=== PATIENT | female | born 1940 | race Caucasian/White ===

== ENCOUNTER 2017-04-05 14:54 | Inpatient (IN) | payer MEDICARE, OTHER ==
[~2017-04-05] VITALS: Ht 162.6 cm; Wt 89.0 kg
[2017-04-05 15:03] VITALS: Ht 162.6 cm; Wt 89.0 kg
[2017-04-05] MEDS ORDERED: SOD CHLORIDE 0.9% 500 ML IV STA (16:32)
--- NOTE | 2017-04-05 17:23 | RADRPT ---
PROCEDURE: XR Chest. CLINICAL INDICATION: Chest pain. TECHNIQUE: Single frontal view of the chest was obtained. COMPARISON: Chest x-ray 03/25/2014. FINDINGS: The soft tissues are normal. There are degenerative osteophytes in the thoracic spine with a mild l evoscoliosis at the thoracolumbar junction. The heart is enlarged. The cardiomediastinal silhouett e and hilar structures are normal. The pulmonary vasculature is upper limits of normal. Vascular ca lcifications are suspected in the aortic arch. There is a suboptimal inspiratory effort with jaclyn sive atelectasis in the lungs and increased interstitial markings in the perihilar areas The costop hrenic angles are normal. IMPRESSION: 1. Mild cardiomegaly. 2. Suboptimal inspiration with vascular crowding increased interstitial markings in the lungs. 3. Spondylosis of the thoracic spine. 4. Atherosclerotic vascular disease. RPTAT:AAJJ Physician Russ Date Time Electronically viewed and signed by Physician Russ on 04/05/2017 17:23 FRANCES/
--- NOTE | 2017-04-05 17:26 | RADRPT ---
PROCEDURE: Left tibia and fibula x-ray CLINICAL INDICATION: Fall. TECHNIQUE: AP, lateral views of the tibia and fibula were obtained. COMPARISON: No. FINDINGS: There is normal mineralization. No acute fracture or dislocation is seen. There are no significant degenerative changes. There is no significant soft tissue swelling. IMPRESSION: Normal x-ray of the left tibia and fibula. RPTAT:AAJJ Physician Russ Date Time Electronically viewed and signed by Luis Sierra Physician on 04/05/2017 17:25 FRANCES/
--- NOTE | 2017-04-05 17:27 | RADRPT ---
PROCEDURE: Pelvis x-ray CLINICAL INDICATION: Fall. TECHNIQUE: Single AP view of the pelvis performed. COMPARISON: No. FINDINGS: The soft tissues are generous. There are degenerative changes with disk space narrowing between the lower lumbar vertebra and at the lumbosacral junction. There is fecal material in the rectal ampul la. The SI joints and hip joints are bilaterally symmetric. A fracture is not identified. IMPRESSION: 1. A fracture is not identified. 2. 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 RPTAT:AAJJ Physician Russ Date Time Electronically viewed and signed by Physician Russ on 04/05/2017 17:26 /
[2017-04-05 17:44] LABS: ADD SCAN DIFF NO
[2017-04-05 17:47] LABS: ABNORMAL IP MESSAGE 1; HEMATOCRIT 31.5 % (37.0-47.0); HEMOGLOBIN 10.7 g/dl (12.0-16.0); MEAN CORPUSCULAR VOLUME 94.3 fl (82.0-101.0); MEAN PLATELET VOLUME 11.6 fl (7.4-10.4); PLATELET COUNT 92 10^3/UL (140-415); RED BLOOD COUNT 3.34 10^6/ul (4.20-5.40); RED CELL DISTRIBUTION WIDTH 13.8 % (11.5-14.5); WHITE BLOOD COUNT 8.5 10^3/ul (4.8-10.8)
[2017-04-05 18:00] LABS: ALBUMIN 4.1 g/dl (3.3-4.9)
--- NOTE | 2017-04-05 18:00 | RADRPT ---
PROCEDURE: CT Brain without. CLINICAL INDICATION: Fall. TECHNIQUE: A CT of the brain was performed on multidetector high-resolution CT scanner utilizing a xial sections from the skull base through the vertex without contrast. The scan was reviewed in sof t tissue brain and high frequency resolution bone algorithm windows. Images were reviewed on a high -resolution PACS workstation. One or more the following does reduction techniques were utilized: Aut omated exposure control, adjustment of the mA/ or kV according to patient's size, or use of iterativ e reconstruction technique. The exam CTDI = 43.58 mGy and the DLP = 630.2 mGy-cm. COMPARISON: None available. FINDINGS: Postsurgical changes of prior right frontal craniotomy are noted with subjacent right frontal enceph alomalacia and ex vacuo dilatation of the right lateral ventricle. There is also focal encephalomal acia in the anterior right thalamus. The ventricles and sulci are otherwise mildly prominent indicative of volume loss. There is no intra cranial hemorrhage, mass effect or midline shift. No abnormal intra-axial or extra-axial fluid tita ections are seen. The justin/white matter differentiation is preserved. There are mild scattered foci of hypoattenuation in the periventricular, deep, and subcortical white matter, which are nonspecific in etiology but likely reflect chronic small vessel ischemic changes. There are mild intracranial vascular calcifications consistent with atherosclerosis. The visualize d paranasal sinuses are essentially clear. IMPRESSION: 1. No acute intracranial hemorrhage, transcortical infarction or mass effect. 2. Mild intracranial atherosclerosis and chronic small vessel ischemic changes. 3. Mild generalized cerebral volume loss. 4. Prior right frontal craniotomy with subjacent right frontal encephalomalacia. Focal encephalomal acia in the anterior right thalamus. RPTAT: HH .Alice Han MD, MD Date Time Electronically viewed and signed by .Alice Han MD, MD on 04/05/2017 18:00 .N/
[2017-04-05 18:01] LABS: POTASSIUM 4.5 mmol/L (3.5-5.1)
[2017-04-05 18:02] LABS: INR 1.08; PT RATIO 1.1
[2017-04-05 18:03] LABS: ALBUMIN/GLOBULIN RATIO 1.7; BILIRUBIN,INDIRECT 1.2 mg/dl (0-1.1); BILIRUBIN,TOTAL 1.2 mg/dl (0.2-1.3); CREATININE 0.93 mg/dl (0.44-1.00); PARTIAL THROMBOPLASTIN TIME 44.6 Sec (25.0-35.0); TOTAL PROTEIN 6.5 g/dl (6.1-8.1)
[2017-04-05 18:04] LABS: CALCIUM 9.1 mg/dl (8.4-10.2)
--- NOTE | 2017-04-05 18:12 | RADRPT ---
PROCEDURE: XR Left rib series. CLINICAL INDICATION: Left chest wall pain TECHNIQUE: 3 views of the left rib cage are available for review COMPARISON: None available FINDINGS: The osseous structures, articular spaces, and surrounding soft tissues of the left rib cage are inta ct. No acute fracture or dislocation is seen. No radiopaque foreign body is identified. The visual ized portions of the underlying lung is clear. IMPRESSION: 1. No evidence of acute fracture is identified. RPTAT: HDWR .Alonzo Mcneal MD, MD Date Time Electronically viewed and signed by .Alonzo Mcneal MD, on 04/05/2017 18:12 .R/
[2017-04-05 18:15] LABS: TROPONIN-I 0.03 ng/ml (0.00-0.12)
[2017-04-05 18:26] LABS: HYPOCHROMASIA 1+; LYMPHOCYTES # 0.3 10^3/ul (0.8-2.9); MONOCYTE # 0.2 10^3/ul (0.3-0.9); NEUTROPHIL # 8.1 10^3/ul (1.6-7.5); PLATELET ESTIMATE PLT APPEAR DECREASED
[2017-04-05] MEDS ORDERED: DEXTROSE 50% 50 ML SYRINGE IV ONE (18:30)
[2017-04-05] MEDS ORDERED: ASPI81TA3 PO (18:50)
[2017-04-05] MEDS ORDERED: FURO20TA3 PO (18:51)
[2017-04-05] MEDS ORDERED: FLUT16SP17 NASAL (18:51)
[2017-04-05] MEDS ORDERED: CARV3.1260 PO (18:52)
[2017-04-05] MEDS ORDERED: LOSA25TA5 PO (18:52)
[2017-04-05] MEDS ORDERED: METF1000 PO (18:53)
[2017-04-05] MEDS ORDERED: ATOR20TA38 PO (18:53)
[2017-04-05] MEDS ORDERED: LEVE750T8 PO (18:54)
[2017-04-05] MEDS ORDERED: OMEG1CAP2 PO (18:54)
[2017-04-05 18:55] LABS: ADD UMIC YES; URINE BILIRUBIN (Dip) NEGATIVE (NEGATIVE); URINE BLOOD (Dip) TRACE (NEGATIVE); URINE COLOR LT. YELLOW (YELLOW); URINE GLUCOSE (Dip) NEGATIVE (NEGATIVE); URINE KETONES (Dip) NEGATIVE (NEGATIVE); URINE LEUKOCYTE ESTERASE (Dip) NEGATIVE (NEGATIVE); URINE NITRITE (Dip) NEGATIVE (NEGATIVE); URINE TOTAL PROTEIN (Dip) NEGATIVE (NEGATIVE); URINE UROBILINOGEN (Dip) 0.2 E.U./dL (0.1-1.0)
[2017-04-05] MEDS ORDERED: LANT3I SC (18:55)
--- NOTE | 2017-04-05 18:55 | ERA ---
ER Documentation Chief Complaint Date/Time DATE: 04/05/17 TIME: 18:51 Chief Complaint PER TRAVEL MED SURG RN W/ PERIOD OF AGITATION, SEND BY PMD FOR ADMISSION? AGITATED HPI History obtained from patient's caregiver as patient is unable to give a detailed history secondary to her cognitive deficit. This is a 76-year-old female who presents to the emergency room after being sent in by her primary care physician, Dr. Bard champagne for evaluation of multiple falls, agitation and weakness. According to the patient's caregiver she has had multiple falls this week, and she does have a history of prior head injury with surgical intervention required. This patient is not on any blood thinners at this time. ROS All systems reviewed and are negative except as per history of present illness. Medications Home Meds Reported Medications Aspirin* (Aspirin* Chew) 81 Mg Tab.chew, 81 MG PO DAILY, TAB.CHEW 04/05/17 Allergies Allergies: Coded Allergies: No Known Allergy (Unverified , 04/05/17) PMhx/Soc History of Surgery: Yes (see chart) Anesthesia Reaction: No Hx Neurological Disorder: No Hx Respiratory Disorders: No Hx Cardiac Disorders: No Hx Psychiatric Problems: No Hx Miscellaneous Medical Probl: Yes (Bipolar ) Hx Alcohol Use: No Hx Substance Use: No Hx Tobacco Use: No Smoking Status: Never smoker Physical Exam Vitals Vital Signs Date Time Temp Pulse Resp B/P Pulse Ox O2 Delivery O2 Flow Rate FiO2 04/05/17 18:21 98.2 74 16 116/68 99 Room Air 04/05/17 15:03 98.2 78 18 122/57 99 Physical Exam INITIAL VITAL SIGNS: Reviewed by me GENERAL: The patient is frail-appearing elderly female, no acute HEENT: Dry mucous membranes, pupils equal, round, and reactive to light. EOMI. There is no scleral icterus. NECK: C-spine is soft and supple, there is no meningismus. There is no cervical lymphadenopathy. LUNGS: Clear to auscultation bilaterally. There are no rales, wheezes or rhonchi. HEART: Regular rate and rhythm, no murmurs, clicks, rubs or gallops. ABDOMEN: Soft, non-tender, non-distended. There are bowel sounds in all four quadrants. No rebound or guarding. EXTREMITIES: There is no peripheral cyanosis or edema. No focal swelling or erythema. NEUROLOGICAL: The patient moves all four extremities with 5/5 strength. Cranial nerves II - XII are intact. Normal gait. Alert and oriented SKIN: Multiple areas of ecchymosis noted over the left flank, right anterior chest wall, right and left tibia, hematoma noted over the left anterior portion of the tibia there is no apparent rash or petechiae. HEME/LYMPHATIC: There is no evidence of excessive bruising or lymphedema. PSYCHIATRIC: The patient does not appear anxious or depressed. Result Diagram: 04/05/175 04/05/17 1715 Results 24 hrs Laboratory Tests Test 04/05/17 17:15 White Blood Count 8.510^3/ul Red Blood Count 3.3410^6/ul Hemoglobin 10.7g/dl Hematocrit 31.5% Mean Corpuscular Volume 94.3fl Mean Corpuscular Hemoglobin 32.0pg Mean Corpuscular Hemoglobin Concent 34.0g/dl Red Cell Distribution Width 13.8% Platelet Count 9210^3/UL Mean Platelet Volume 11.6fl Neutrophils % 95.0% Lymphocytes % 3.0% Monocytes % 2.0% Neutrophils # 8.110^3/ul Lymphocytes # 0.310^3/ul Monocytes # 0.210^3/ul Platelet Estimate PLT APPEAR DECREASED Hypochromasia 1+ Prothrombin Time 14.0Sec Prothrombin Time Ratio 1.1 INR International Normalized Ratio 1.08 Activated Partial Thromboplast Time 44.6Sec Sodium Level 140mmol/L Potassium Level 4.5mmol/L Chloride Level 103mmol/L Carbon Dioxide Level 25mmol/L Anion Gap 17 Blood Urea Nitrogen 23mg/dl Creatinine 0.93mg/dl Glucose Level 50mg/dl Lactic Acid Level 1.0mmol/L Calcium Level 9.1mg/dl Total Bilirubin 1.2mg/dl Direct Bilirubin 0.00mg/dl Indirect Bilirubin 1.2mg/dl Aspartate Amino Transf (AST/SGOT) 16IU/L Alanine Aminotransferase (ALT/SGPT) 28IU/L Alkaline Phosphatase 60IU/L Troponin I 0.030ng/ml B-Type Natriuretic Peptide 1900PG/ML Total Protein 6.5g/dl Albumin 4.1g/dl Globulin 2.40g/dl Albumin/Globulin Ratio 1.70 Current Medications Medications (Trade) Dose Ordered Sig/Janee Route PRN Reason Start Time Stop Time Status Last Admin Dose Admin Sodium Chloride (NS) 500 ml @ 500 mls/hr Q1H STAT IV 04/05/17 16:32 04/05/17 17:31 DC 04/05/17 17:38 Dextrose (D50w Syringe) 50 ml ONCE ONCE IV 04/05/17 18:30 04/05/17 18:31 DC 04/05/17 18:18 Ondansetron HCl (Zofran Inj) 4 mg BRIDGE ORDER PRN IV NAUSEA AND/OR VOMITING 04/05/17 19:00 04/06/17 18:59 Acetaminophen (Tylenol Tab) 650 mg ER BRIDGE PRN PO MILD PAIN/FEVER 04/05/17 19:00 04/06/17 18:59 Procedures/MDM EKG: Rate/Rhythm: [Normal Sinus Rhythm] QRS, ST, T-waves: [No changes consistent w/ acute ischemia] Impression: [No evidence of ischemia or arrhythmia] Chest X-ray 1V Interpreted by me: Soft Tissue: No acute abnormalities Bones: No acute abnormalities Mediastinum/Cardiac Silhouette/Lungs: [No acute abnormalities] X-ray Pelvis 1V Interpreted by me: Bones: [No fracture] Joints: [No dislocation] Foreign body: [None] X-ray Ribs 2V Interpreted by me: Soft Tissue: No acute abnormalities Bones: No acute abnormalities Mediastinum/Cardiac Silhouette/Lungs: [No acute abnormalities] X-ray Tib/Fib 2V Interpreted by me: Bones: No fracture Joints: No dislocation Foreign body: None CT head without: 1. No acute intracranial hemorrhage, transcortical infarction or mass effect. 2. Mild intracranial atherosclerosis and chronic small vessel ischemic changes. 3. Mild generalized cerebral volume loss. 4. Prior right frontal craniotomy with subjacent right frontal encephalomalacia. Focal encephalomalacia in the anterior right thalamus. This 76-year-old female presents to the emergency room for evaluation of multiple falls. This patient does have a caregiver at home who states that she has been falling more frequently. Her primary care physician, Dr. parra evaluated her and centered to the emergency room for x-rays and admission. When I evaluated this patient she did have multiple areas of ecchymosis over her left rib cage and flank area, her anterior shins, and a right anterior chest wall. X-rays were obtained which did not show any acute fractures. CT of the head does not show any acute bleeds. This patient was found to have a blood sugar of 50. She was given dextrose in the emergency room. Her primary care physician is at bedside and would like the patient admitted for multiple falls. The patient will be placed in for admission to the [facility] floor. There was a discrepancy with this patient's insurance in regards to the admitting physician however her primary care physician is at bedside and would like the patient admitted to him, [facility] Departure Diagnosis: Primary Impression: Multiple falls Additional Impressions: Hypoglycemia Normocytic anemia Contusion of rib on left side Agitation Condition: Stable RONDA NEVILLE DO April 05, 2017 18:55
[2017-04-05] MEDS ORDERED: ACETAMINOPHEN 325 MG TAB PO PRN ×2 (19:00→23:00)
[2017-04-05] MEDS ORDERED: ONDANSETRON 4 MG INJ IV PRN (19:00)
[2017-04-05 19:10] LABS: BACTERIA,URINE FEW; URINE RBCS 0-2 /HPF (0)
[2017-04-05 19:39] VITALS: TEMP 98.2
[2017-04-05 22:50] VITALS: BP 154/65; RESP 18
[2017-04-05] MEDS ORDERED: traMADol 50 MG TAB PO PRN (23:00)
[2017-04-05] MEDS ORDERED: DEXTROSE 50% 50 ML SYRINGE IV PRN ×2 (23:30)
[2017-04-05] MEDS ORDERED: GLUCAGON 1 MG INJ IM PRN (23:30)
[2017-04-05] MEDS ORDERED: GLUCOSE GEL 15 GRAM TUBE PO PRN ×2 (23:30)
[2017-04-05] MEDS ORDERED: GLUCOSE GEL 15 GRAM TUBE BUCCAL PRN (23:30)
[2017-04-06 01:00] LABS: CK-MB 0.79 ng/ml (0.0-2.4); TROPONIN-I 0.032 ng/ml (0.00-0.12)
[2017-04-06] MEDS: ACCU-CHEK XX SCH (01:19)
--- NOTE | 2017-04-06 05:22 | HP ---
DATE OF ADMISSION: 04/05/2017 CHIEF COMPLAINT: Left leg pain, left-sided chest wall pain due to recent fall, lethargy. HISTORY OF PRESENT ILLNESS: The patient is a 76-year-old female with history of hypertension, diabetes, mentally challenged history of schizophrenia and bipolar disorder who is currently living by herself. The patient also has history of subdural hematoma status post craniotomy. The patient's DPOA who lives close to her apartment brought her into [facility] ER for recurrent fall. The patient has soft tissue swelling in the left leg as well as ecchymosis of the left side of the chest and also has chest wall pain which increases with movement and pressure. The patient has been feeling sleepy since this morning. The patient denies any headache. No reported vomiting. The patient does not have any significant leg edema. The patient did not have any focal deficit, although the patient has generalized weakness and was having difficulty even in sitting and was dozing off. The patient was seen in the ER and was noted to have a blood sugar of 50. The patient takes insulin and oral hypoglycemic; however, does not check sugar and also is noncompliant with her medications. The patient had multiple diagnostic studies done including a rib x -rays which were negative for fracture. The patient also had a CT of the brain which revealed past right frontal craniotomy with subsequent right frontal encephalomalacia. Chest x-ray revealed mild cardiomegaly. Tibia fibula x-ray negative for fracture. The patient is being admitted for further evaluation and management. The patient's CBC revealed WBC 8.5, hemoglobin 10.7, platelets 92. The patient has a history of chronic anemia and thrombocytopenia of unknown etiology. The patient in the past has had some workup done including an SUSU screen which was negative. The patient also has a history of chronic psoriasis for which patient was seen by Dr. Shay at one time. The patient is being admitted for further evaluation and management. REVIEW OF SYSTEMS: Limited as the patient did not cooperate and was lethargic and dozing off during interview. Although she was able to move all extremities and she did not have any fever or chills, there was no chest congestion or diaphoresis. PAST MEDICAL HISTORY: Extensive as mentioned above. The patient also has history of GI bleed back in 2013 and underwent EGD which revealed erosive esophagitis, hiatal hernia and gastritis. The patient was seen by Dr. Jules back in 2013 for pancytopenia, and, as mentioned, the patient has multiple psych diagnoses and was seen by Dr. Isabel from a psych standpoint. PAST SURGICAL HISTORY: Patient is status post craniotomy for subdural hematoma , also status post bilateral cataract surgery. SOCIAL HISTORY: No smoking, no alcohol. The patient lives by herself and has a caregiver who also happens to have DPOA. PHYSICAL EXAMINATION: GENERAL: The patient is lethargic but arousable, however dozes off again. VITAL SIGNS: Temperature 98.2, pulse 79, respirations 16, blood pressure 122/60 , O2 saturation 99% on room air. HEENT: The patient has evidence of previous craniotomy. Conjunctivae and lids normal. Extraocular movements grossly negative. NECK: Supple. No mass, no thyromegaly. Oropharynx grossly negative. CHEST: Fairly clear. No use of accessory muscles. CARDIOVASCULAR: Regular rate and rhythm. S1, S2 normal. No murmur, gallop, or rub. ABDOMEN: Soft, nondistended, nontender. EXTREMITIES: No leg edema. NEUROLOGIC: The patient is lethargic but arousable. Moves all extremities. Intermittently follows simple commands. SKIN: The patient has some areas of psoriatic rash. LABORATORY DATA: WBC 8.5, hemoglobin 10.7, platelet 92. Chemistry: Sodium 140 , potassium 4.5, BUN 20, creatinine 0.9, glucose 50 and 1.2. BNP 1900. Albumin 4.1. Lactic acid 1. UA unremarkable. IMPRESSION: 1. Hypoglycemia. 2. Recurrent fall with chest contusion and left leg contusion. 3. Diabetes mellitus. 4. Hypertension. 5. Dyslipidemia. 6. Seizure disorder. 7. History of pancytopenia. Currently the patient has anemia and thrombocytopenia of unknown etiology. 8. Mentally challenged. 9. H/O Subdural hematoma s/p surgery PLAN: The patient admitted on medical floor. Patient will be started on Tylenol, Lipitor, Coreg and Keppra. I will also continue Cozaar. Will put the patient on sliding scale insulin. Will obtain TSH, lipid panel, ferritin, folate, glycohemoglobin, hepatitis B surface antigen and hepatitis C antibodies. Stool for OB and vitamin B12 level. We will also obtain echocardiogram to assess LV function. Will hold off on aspirin and Lovenox due to thrombocytopenia. Will consider heme onc eval if work up is negative Further recommendations will depend on patient's hospital course. Dictated By: PATRICIA MAYFIELD/MARYSOL Conf#: [id number] DID#: [id number] MTDD
[2017-04-06 07:05] LABS: ADD SCAN DIFF NO
[2017-04-06 07:10] LABS: ABNORMAL IP MESSAGE 1; BASOPHILS % 0.3 % (0.0-2.0); EOSINOPHILS # 0.1 10^3/ul (0.0-0.5); EOSINOPHILS % 1.7 % (0.0-7.0); HEMATOCRIT 28.3 % (37.0-47.0); HEMOGLOBIN 9.6 g/dl (12.0-16.0); LYMPHOCYTES # 0.3 10^3/ul (0.8-2.9); LYMPHOCYTES % 7.8 % (15.0-51.0); MEAN CORPUSCULAR HGB CONC 33.9 g/dl (32.0-37.0); MEAN CORPUSCULAR VOLUME 94.3 fl (82.0-101.0); MEAN PLATELET VOLUME 11.9 fl (7.4-10.4); MONOCYTE # 0.2 10^3/ul (0.3-0.9); MONOCYTES % 6.7 % (0.0-11.0); NEUTROPHIL # 2.9 10^3/ul (1.6-7.5); NEUTROPHILS % 83.2 % (39.0-77.0); PLATELET COUNT 78 10^3/UL (140-415); RED CELL DISTRIBUTION WIDTH 14.2 % (11.5-14.5); WHITE BLOOD COUNT 3.4 10^3/ul (4.8-10.8)
[2017-04-06 07:27] VITALS: BP 149/66; RESP 18
[2017-04-06 07:34] LABS: IRON 51 ug/dl (35-150)
[2017-04-06 07:35] LABS: CHOL/HDL RATIO 4.7 RATIO; CHOLESTEROL 115 mg/dl (100-200); HDL CHOLESTEROL 24 mg/dl (33-92); TRIGLYCERIDES 94 mg/dl (0-149)
[2017-04-06 07:43] LABS: CK-MB 0.63 ng/ml (0.0-2.4)
[2017-04-06 07:46] LABS: TROPONIN-I 0.047 ng/ml (0.00-0.12)
[2017-04-06 07:47] LABS: TOTAL IRON BINDING CAPACITY 265 ug/dl (241-421)
[2017-04-06] MEDS: INSULIN ASPART [NOVOLOG] 3 ML PEN SC SCH ×5 (08:00→21:47)
[2017-04-06 08:12] LABS: FERRITIN 65.7 ng/ml (11.1-264.0)
[2017-04-06 08:42] LABS: FOLATE 7.2 ng/ml (2.8-20.0)
[2017-04-06] MEDS: LEVETIRACETAM 750 MG TAB PO SCH ×2 (09:07→21:44)
[2017-04-06] MEDS: LOSARTAN 25 MG TAB PO SCH (09:07)
--- NOTE | 2017-04-06 10:37 | PN ---
Date/Time of Note Date/Time of Note DATE: 04/06/17 TIME: 10:36 Assessment/Plan VTE Prophylaxis VTE Prophylaxis Intervention: other Lines/Catheters IV Catheter Type (from [facility]): Saline [place] Assessment/Plan Chief Complaint/Hosp Course 1. Hypoglycemia. - monitor blood sugar 2. Recurrent fall with chest contusion and left leg contusion. - consider PT 3. Diabetes mellitus. - monitor 4. Hypertension. - continue medication 5. Dyslipidemia. - continue medication 6. Seizure disorder. - continue medications, seizure precaution 7. History of pancytopenia. Currently the patient has anemia and thrombocytopenia of unknown etiology. - follow CBC 8. Mentally challenged. Problems: Subjective 24 Hr Interval Summary Free Text/Dictation Patient has no acute complaints Exam/Review of Systems Vital Signs Vitals Vital Signs Date Time Temp Pulse Resp B/P Pulse Ox O2 Delivery O2 Flow Rate FiO2 04/06/17 07:27 98.6 84 18 149/66 99 04/05/17 23:00 Room Air Intake and Output 04/05/17 04/05/17 04/06/17 15:00 23:00 07:00 Intake Total 200 ml Output Total 400 ml Balance -200 ml Exam Constitutional: well developed Head: atraumatic, normocephalic Neck: supple Respiratory: clear to auscultation Cardiovascular: regular rate and rhythm Gastrointestinal: non-tender, soft Extremities: normal pulses Results Result Diagram: 04/06/17 0540 04/05/17 1715 Results 24 hrs Laboratory Tests Test 04/05/17 17:15 04/05/17 18:15 04/05/17 18:57 04/05/17 20:30 White Blood Count 8.5 Red Blood Count 3.34 L Hemoglobin 10.7 L Hematocrit 31.5 L Mean Corpuscular Volume 94.3 Mean Corpuscular Hemoglobin 32.0 Mean Corpuscular Hemoglobin Concent 34.0 Red Cell Distribution Width 13.8 Platelet Count 92 L Mean Platelet Volume 11.6 H Neutrophils % 95.0 H Lymphocytes % 3.0 L Monocytes % 2.0 Neutrophils # 8.1 H Lymphocytes # 0.3 L Monocytes # 0.2 L Platelet Estimate PLT APPEAR DECREASED Hypochromasia 1+ Prothrombin Time 14.0 Prothrombin Time Ratio 1.1 INR International Normalized Ratio 1.08 Activated Partial Thromboplast Time 44.6 H Sodium Level 140 Potassium Level 4.5 Chloride Level 103 Carbon Dioxide Level 25 Anion Gap 17 H Blood Urea Nitrogen 23 H Creatinine 0.93 Glucose Level 50 *L Lactic Acid Level 1.0 1.3 Calcium Level 9.1 Total Bilirubin 1.2 Direct Bilirubin 0.00 Indirect Bilirubin 1.2 H Aspartate Amino Transf (AST/SGOT) 16 Alanine Aminotransferase (ALT/SGPT) 28 Alkaline Phosphatase 60 Troponin I 0.030 B-Type Natriuretic Peptide 1900 H Total Protein 6.5 Albumin 4.1 Globulin 2.40 Albumin/Globulin Ratio 1.70 Urine Color LT. YELLOW Urine Clarity CLEAR Urine pH 6.0 Urine Specific [place] <=1.005 L Urine Ketones NEGATIVE Urine Nitrite NEGATIVE Urine Bilirubin NEGATIVE Urine Urobilinogen 0.2 E.U./dL Urine Leukocyte Esterase NEGATIVE Urine Microscopic RBC 0-2 Urine Microscopic WBC 0-2 Urine Epithelial Cells FEW Urine Bacteria FEW Urine Hemoglobin TRACE Urine Glucose NEGATIVE Urine Total Protein NEGATIVE Bedside Glucose 173 Test 04/05/17 23:23 04/06/17 05:40 04/06/17 08:02 Bedside Glucose 174 139 White Blood Count 3.4 #L Red Blood Count 3.00 L Hemoglobin 9.6 L Hematocrit 28.3 L Mean Corpuscular Volume 94.3 Mean Corpuscular Hemoglobin 32.0 Mean Corpuscular Hemoglobin Concent 33.9 Red Cell Distribution Width 14.2 Platelet Count 78 L Mean Platelet Volume 11.9 H Neutrophils % 83.2 H Lymphocytes % 7.8 L Monocytes % 6.7 Eosinophils % 1.7 Basophils % 0.3 Nucleated Red Blood Cells % 0.0 Neutrophils # 2.9 Lymphocytes # 0.3 L Monocytes # 0.2 L Eosinophils # 0.1 Basophils # 0.0 Nucleated Red Blood Cells # 0.0 Hemoglobin A1c 6.0 H Iron Level 51 Total Iron Binding Capacity 265 Percent Iron Saturation 19 L Ferritin 65.7 Creatine Kinase 34 Creatine Kinase Index 1.9 Creatinine Kinase MB (Mass) 0.63 Troponin I 0.047 Triglycerides Level 94 Cholesterol Level 115 LDL Cholesterol, Calculated 72 HDL Cholesterol 24 L Cholesterol/HDL Ratio 4.7 Vitamin B12 Level 319 Folate 7.2 Thyroid Stimulating Hormone (TSH) 1.200 Hepatitis B Surface Antigen NEGATIVE Hepatitis C Antibody NEGATIVE Medications Medications Current Medications Acetaminophen (Tylenol Tab) 650 mg Q4H PRN PO PAIN AND OR ELEVATED TEMP; Start 04/05/17 at 23:00 Diagnostic Test (Pha) (Accu-Chek) 1 ea 02 XX ; Start 04/06/17 at 02:00 Tramadol HCl (Ultram) 50 mg Q6H PRN PO PAIN LEVEL 4-6; Start 04/05/17 at 23:00 Atorvastatin Calcium (Lipitor) 20 mg QHS PO ; Start 04/06/17 at 21:00 Carvedilol (Coreg) 3.125 mg BID PO Last administered on 04/06/17 09:08; Admin Dose 3.125 MG; Start 04/06/17 at 09:00 Levetiracetam (Keppra) 750 mg BID PO Last administered on 04/06/17 09:07; Admin Dose 750 MG; Start 04/06/17 at 09:00 Losartan Potassium (Cozaar) 25 mg DAILY PO Last administered on 04/06/17 09:07 ; Admin Dose 25 MG; Start 04/06/17 at 09:00 Miscellaneous Information 1 ea NOTE XX ; Start 04/05/17 at 23:30 Glucose (Glutose) 15 gm Q15M PRN PO DECREASED GLUCOSE; Start 04/05/17 at 23:30 Glucose (Glutose) 22.5 gm Q15M PRN PO DECREASED GLUCOSE; Start 04/05/17 at 23: 30 Dextrose (D50w Syringe) 25 ml Q15M PRN IV DECREASED GLUCOSE; Start 04/05/17 at 23:30 Dextrose (D50w Syringe) 50 ml Q15M PRN IV DECREASED GLUCOSE; Start 04/05/17 at 23:30 Glucagon (Glucagen) 1 mg Q15M PRN IM DECREASED GLUCOSE; Start 04/05/17 at 23:30 Glucose (Glutose) 15 gm Q15M PRN BUCCAL DECREASED GLUCOSE; Start 04/05/17 at 23 :30 LEIGHA MATA April 06, 2017 10:37
--- NOTE | 2017-04-06 16:54 | RADRPT ---
Echocardiogram Report Patient Name: KRISTOPHER FINK Gender: Female Date: 1940 Study Date: 06-Apr-2017 Tower Watchman: REYNALDO Location: I Height(Cm): 163 Weight(Kg): 89 BSA: 2.01 Ref. Physician: PATRICIA COVINGTON Quality: Adequate Procedures: Transthoracic echocardiogram with 2D, M-Mode, and Doppler examination, poor subcostal images. Indications: Hypertension. 2D/M Mode Doppler Measurement Value Normal Ranges Measurement Value Normal Ranges AoR Diam MM 3.3 cm AV Peak Giancarlo 1.3 m/sec ACS MM 1.8 cm AV Peak PG 6.6 mmHg LVIDd 2D 5.6 3.5 - 5.6 cm LVOT Peak Giancarlo 0.7 m/sec LVIDs 2D 3.7 2.1 - 4.1 cm LVOT Peak PG 1.9 mmHg LVPWd 2D 1.0 0.6 - 1.1 cm MV E Peak Giancarlo 0.9 m/sec IVSd 2D 1.0 0.6 - 1.1 cm MV A Peak Giancarlo 1.0 m/sec EDV 2D 156.6 cm3 MV E/A 0.9 ESV 2D 50.4 cm3 MV Decel Time 174 msec LA Dimen 2D 3.9 2.3 - 4.0 cm MV Decel [place] 5 MV E/A 0.9 PV Peak Giancarlo 1.0 m/sec PV Peak PG 4.0 mmHg Findings Left Ventricle: Normal left ventricular systolic function. Normal left ventricular cavity size. Normal left ventricular wall thickness. Ejection fraction is visually estimated at 60 %. Tissue Doppler/Mitral Doppler indices are consistent with impaired relaxation (Stage I diastolic dysfunction). E/E`=23. E`=0 cm/s. Right Ventricle: Normal right ventricular size. Normal right ventricular systolic function. Left Atrium: There is moderate enlargement of left atrium, appreciated best by LA volumes. Right Atrium: The right atrium is normal in size. Atrial Septum: Not well visualized. Mitral Valve: Normal appearance of the mitral valve. Mild mitral valve regurgitation. Aortic Valve: Aortic cusps appear mildly calcified. Trileaflet aortic valve. Trace aortic valve regurgitation. Tricuspid Valve: Normal appearance and function of the tricuspid valve with trace physiologic regurgitation. Pulmonic Valve: Normal pulmonic valve appearance. There is trace pulmonic regurgitation. Pericardium: Normal pericardium with no significant pericardial effusion. Trivial pericardial effusion. Aorta: Normal aortic root. There is minimal aortic root calcification. IVC: Normal size and normal respiratory collapse consistent with normal right atrial pressure. Pulmonary Artery: Normal pulmonary artery size. Conclusions 1.Normal left ventricular systolic function. Normal left ventricular cavity size. Normal left ventricular wall thickness. Ejection fraction is visually estimated at 60 %. Tissue Doppler/Mitral Doppler indices are consistent with impaired relaxation (Stage I diastolic dysfunction). 2.Normal right ventricular size. Normal right ventricular systolic function. 3.Normal appearance and function of the tricuspid valve with trace physiologic regurgitation. 4.Aortic cusps appear mildly calcified. Trileaflet aortic valve. Trace aortic valve regurgitation. 5.Normal appearance of the mitral valve. Mild mitral valve regurgitation. 6.Normal pericardium with Trivial pericardial effusion. Electronically Signed By: Paulino Waggoner 06-Apr-2017 16:53:07 -0700 Patient Name: KRISTOPHER FINK Study Date: 06-Apr-2017 [id number]
[2017-04-06 19:16] VITALS: BP 115/54; RESP 18
[2017-04-06] MEDS: ATORVASTATIN 20 MG TAB PO SCH (21:44)
[2017-04-07] MEDS: ACCU-CHEK XX SCH (02:00)
[2017-04-07 07:51] VITALS: BP 126/61; RESP 16
[2017-04-07] MEDS: INSULIN ASPART [NOVOLOG] 3 ML PEN SC SCH ×4 (08:08→20:27)
[2017-04-07] MEDS: LEVETIRACETAM 750 MG TAB PO SCH ×2 (08:56→20:24)
[2017-04-07] MEDS: LOSARTAN 25 MG TAB PO SCH (08:56)
--- NOTE | 2017-04-07 11:17 | PN ---
Date/Time of Note Date/Time of Note DATE: 04/07/17 TIME: 11:17 Assessment/Plan VTE Prophylaxis VTE Prophylaxis Intervention: other Lines/Catheters IV Catheter Type (from Nrsg): Mid Line Assessment/Plan Chief Complaint/Hosp Course 1. Hypoglycemia. - monitor blood sugar 2. Recurrent fall with chest contusion and left leg contusion. - consider PT 3. Diabetes mellitus. - monitor 4. Hypertension. - continue medication 5. Dyslipidemia. - continue medication 6. Seizure disorder. - continue medications, seizure precaution 7. History of pancytopenia. Currently the patient has anemia and thrombocytopenia of unknown etiology. - follow CBC 8. Mentally challenged. Problems: Subjective 24 Hr Interval Summary Free Text/Dictation Patient has no complaint, states is feeling better Exam/Review of Systems Vital Signs Vitals Vital Signs Date Time Temp Pulse Resp B/P Pulse Ox O2 Delivery O2 Flow Rate FiO2 04/07/17 07:51 98.7 71 16 126/61 96 04/05/17 23:00 Room Air Intake and Output 04/06/17 04/06/17 04/07/17 15:00 23:00 07:00 Intake Total 1560 ml 400 ml Output Total 1500 ml 1350 ml Balance 60 ml -950 ml Exam Constitutional: well developed Head: atraumatic, normocephalic Neck: supple Respiratory: diminished breath sounds Cardiovascular: regular rate and rhythm Gastrointestinal: non-tender, soft Extremities: normal pulses Results Result Diagram: 04/06/17 0540 04/05/17 1715 Results 24 hrs Laboratory Tests Test 04/06/17 12:17 04/06/17 17:23 04/06/17 21:40 04/07/17 02:17 Bedside Glucose 167 181 240 H 200 Test 04/07/17 08:01 Bedside Glucose 163 Medications Medications Current Medications Acetaminophen (Tylenol Tab) 650 mg Q4H PRN PO PAIN AND OR ELEVATED TEMP; Start 04/05/17 at 23:00 Diagnostic Test (Pha) (Accu-Chek) 1 ea 02 XX ; Start 04/06/17 at 02:00 Tramadol HCl (Ultram) 50 mg Q6H PRN PO PAIN LEVEL 4-6; Start 04/05/17 at 23:00 Atorvastatin Calcium (Lipitor) 20 mg QHS PO Last administered on 04/06/17t 21: 44; Admin Dose 20 MG; Start 04/06/17 at 21:00 Carvedilol (Coreg) 3.125 mg BID PO Last administered on 04/07/17 08:56; Admin Dose 3.125 MG; Start 04/06/17 at 09:00 Levetiracetam (Keppra) 750 mg BID PO Last administered on 04/07/17 08:56; Admin Dose 750 MG; Start 04/06/17 at 09:00 Losartan Potassium (Cozaar) 25 mg DAILY PO Last administered on 04/07/17 08:56 ; Admin Dose 25 MG; Start 04/06/17 at 09:00 Miscellaneous Information 1 ea NOTE XX ; Start 04/05/17 at 23:30 Glucose (Glutose) 15 gm Q15M PRN PO DECREASED GLUCOSE; Start 04/05/17 at 23:30 Glucose (Glutose) 22.5 gm Q15M PRN PO DECREASED GLUCOSE; Start 04/05/17 at 23: 30 Dextrose (D50w Syringe) 25 ml Q15M PRN IV DECREASED GLUCOSE; Start 04/05/17 at 23:30 Dextrose (D50w Syringe) 50 ml Q15M PRN IV DECREASED GLUCOSE; Start 04/05/17 at 23:30 Glucagon (Glucagen) 1 mg Q15M PRN IM DECREASED GLUCOSE; Start 04/05/17 at 23:30 Glucose (Glutose) 15 gm Q15M PRN BUCCAL DECREASED GLUCOSE; Start 04/05/17 at 23 :30 LEIGHA MATA April 07, 2017 11:17
[2017-04-07 19:26] VITALS: BP 135/58; RESP 18
[2017-04-07] MEDS: ATORVASTATIN 20 MG TAB PO SCH (20:24)
[2017-04-08] MEDS: ACCU-CHEK XX SCH (02:00)
[2017-04-08 05:40] LABS: ADD SCAN DIFF NO
[2017-04-08 05:41] LABS: ABNORMAL IP MESSAGE 1; BASOPHILS % 0.7 % (0.0-2.0); EOSINOPHILS # 0.1 10^3/ul (0.0-0.5); EOSINOPHILS % 3.9 % (0.0-7.0); HEMATOCRIT 29.2 % (37.0-47.0); HEMOGLOBIN 9.8 g/dl (12.0-16.0); LYMPHOCYTES # 0.4 10^3/ul (0.8-2.9); LYMPHOCYTES % 11.5 % (15.0-51.0); MEAN CORPUSCULAR HEMOGLOBIN 31.8 pg (29.0-33.0); MEAN CORPUSCULAR HGB CONC 33.6 g/dl (32.0-37.0); MEAN CORPUSCULAR VOLUME 94.8 fl (82.0-101.0); MONOCYTE # 0.3 10^3/ul (0.3-0.9); MONOCYTES % 9.2 % (0.0-11.0); NEUTROPHIL # 2.3 10^3/ul (1.6-7.5); NEUTROPHILS % 74.4 % (39.0-77.0); PLATELET COUNT 68 10^3/UL (140-415); RED BLOOD COUNT 3.08 10^6/ul (4.20-5.40); WHITE BLOOD COUNT 3.1 10^3/ul (4.8-10.8)
[2017-04-08 06:03] LABS: CALCIUM 9.2 mg/dl (8.4-10.2); CREATININE 0.87 mg/dl (0.44-1.00); POTASSIUM 4.7 mmol/L (3.5-5.1)
[2017-04-08 08:19] VITALS: BP 144/61; RESP 16
[2017-04-08] MEDS: LEVETIRACETAM 750 MG TAB PO SCH ×2 (08:50→21:17)
[2017-04-08] MEDS: LOSARTAN 25 MG TAB PO SCH (08:50)
[2017-04-08] MEDS: INSULIN ASPART [NOVOLOG] 3 ML PEN SC SCH ×4 (08:53→21:29)
--- NOTE | 2017-04-08 18:49 | PN ---
Date/Time of Note Date/Time of Note DATE: 04/08/17 TIME: 18:40 Assessment/Plan VTE Prophylaxis VTE Prophylaxis Intervention: SCD's Lines/Catheters [facility] Saline Lock Assessment/Plan Chief Complaint/Hosp Course Assessment and plan: - Hypoglycemia on admission. - Recurrent fall with chest contusion and left leg contusion. Continue physical therapy - Diabetes mellitus with hemoglobin A1c is 6. Continue NovoLog per mild algorithm sliding scale scale. Restart metformin. - Hypertension. Continue Cozaar and Coreg. - Dyslipidemia. Continue statin. - Seizure disorder. Continue Keppra. - History of pancytopenia. Stool for obese negative. - History of subdural hematoma status post craniotomy. - Mentally challenged. Further recommendations based on clinical course. Plan of care discussed with Dr. Diggs. Problems: Subjective 24 Hr Interval Summary Free Text/Dictation Patient is awake alert, is elevated blood sugar will restart patient on Lantus continue to monitor blood sugar q. before meals and at bedtime. Exam/Review of Systems Vital Signs Vitals Vital Signs Date Time Temp Pulse Resp B/P Pulse Ox O2 Delivery O2 Flow Rate FiO2 04/08/17 08:19 98.4 69 16 144/61 96 04/07/17 19:26 Room Air Intake and Output 04/07/17 04/07/17 04/08/17 15:00 23:00 07:00 Intake Total 3500 ml Output Total 2500 ml 900 ml Balance 1000 ml -900 ml Exam Constitutional: alert, well developed Psych: no complaints Head: atraumatic, normocephalic Eyes: nl conjunctiva ENMT: nl external ears & nose Neck: non-tender, supple Respiratory: clear to auscultation, normal air movement Cardiovascular: nl pulses, regular rate and rhythm Gastrointestinal: soft Genitourinary - Female: nl adnexae Musculoskeletal: nl extremities to inspection Extremities: normal pulses Neurological: GRINDER OUTSIDE DIAMETER II-XII intact Results Result Diagram: 04/08/17 0500 04/08/17 0500 Results 24 hrs Laboratory Tests Test 04/07/17 20:23 04/08/17 02:17 04/08/17 05:00 04/08/17 07:58 Bedside Glucose 260 H 212 200 White Blood Count 3.1 L Red Blood Count 3.08 L Hemoglobin 9.8 L Hematocrit 29.2 L Mean Corpuscular Volume 94.8 Mean Corpuscular Hemoglobin 31.8 Mean Corpuscular Hemoglobin Concent 33.6 Red Cell Distribution Width 14.0 Platelet Count 68 L Mean Platelet Volume 12.0 H Neutrophils % 74.4 Lymphocytes % 11.5 L Monocytes % 9.2 Eosinophils % 3.9 Basophils % 0.7 Nucleated Red Blood Cells % 0.0 Neutrophils # 2.3 Lymphocytes # 0.4 L Monocytes # 0.3 Eosinophils # 0.1 Basophils # 0.0 Nucleated Red Blood Cells # 0.0 Sodium Level 136 Potassium Level 4.7 Chloride Level 106 Carbon Dioxide Level 26 Anion Gap 9 Blood Urea Nitrogen 27 H Creatinine 0.87 Glucose Level 203 Calcium Level 9.2 Test 04/08/17 12:34 04/08/17 17:11 Bedside Glucose 279 H 252 H Medications Medications Current Medications Acetaminophen (Tylenol Tab) 650 mg Q4H PRN PO PAIN AND OR ELEVATED TEMP; Start 04/05/17 at 23:00 Diagnostic Test (Pha) (Accu-Chek) 1 ea 02 XX ; Start 04/06/17 at 02:00 Tramadol HCl (Ultram) 50 mg Q6H PRN PO PAIN LEVEL 4-6; Start 04/05/17 at 23:00 Atorvastatin Calcium (Lipitor) 20 mg QHS PO Last administered on 04/07/17 20: 24; Admin Dose 20 MG; Start 04/06/17 at 21:00 Carvedilol (Coreg) 3.125 mg BID PO Last administered on 04/08/17 08:50; Admin Dose 3.125 MG; Start 04/06/17 at 09:00 Levetiracetam (Keppra) 750 mg BID PO Last administered on 04/08/17 08:50; Admin Dose 750 MG; Start 04/06/17 at 09:00 Losartan Potassium (Cozaar) 25 mg DAILY PO Last administered on 04/08/17 08:50 ; Admin Dose 25 MG; Start 04/06/17 at 09:00 Miscellaneous Information 1 ea NOTE XX ; Start 04/05/17 at 23:30 Glucose (Glutose) 15 gm Q15M PRN PO DECREASED GLUCOSE; Start 04/05/17 at 23:30 Glucose (Glutose) 22.5 gm Q15M PRN PO DECREASED GLUCOSE; Start 04/05/17 at 23: 30 Dextrose (D50w Syringe) 25 ml Q15M PRN IV DECREASED GLUCOSE; Start 04/05/17 at 23:30 Dextrose (D50w Syringe) 50 ml Q15M PRN IV DECREASED GLUCOSE; Start 04/05/17 at 23:30 Glucagon (Glucagen) 1 mg Q15M PRN IM DECREASED GLUCOSE; Start 04/05/17 at 23:30 Glucose (Glutose) 15 gm Q15M PRN BUCCAL DECREASED GLUCOSE; Start 04/05/17 at 23 :30 BERTO JULIO April 08, 2017 18:49
[2017-04-08 20:05] VITALS: BP 119/61; RESP 16
[2017-04-08] MEDS: ATORVASTATIN 20 MG TAB PO SCH (21:16)
[2017-04-09] MEDS: ACCU-CHEK XX SCH (02:31)
[2017-04-09 06:10] LABS: ADD SCAN DIFF NO
[2017-04-09 06:22] LABS: ABNORMAL IP MESSAGE 1; BASOPHILS % 0.3 % (0.0-2.0); EOSINOPHILS # 0.1 10^3/ul (0.0-0.5); EOSINOPHILS % 2.5 % (0.0-7.0); HEMATOCRIT 28.4 % (37.0-47.0); HEMOGLOBIN 9.7 g/dl (12.0-16.0); LYMPHOCYTES # 0.4 10^3/ul (0.8-2.9); LYMPHOCYTES % 11.2 % (15.0-51.0); MEAN CORPUSCULAR HEMOGLOBIN 32.1 pg (29.0-33.0); MEAN CORPUSCULAR HGB CONC 34.2 g/dl (32.0-37.0); MEAN PLATELET VOLUME 11.9 fl (7.4-10.4); MONOCYTE # 0.3 10^3/ul (0.3-0.9); NEUTROPHIL # 2.8 10^3/ul (1.6-7.5); NEUTROPHILS % 78.7 % (39.0-77.0); PLATELET COUNT 68 10^3/UL (140-415); RED BLOOD COUNT 3.02 10^6/ul (4.20-5.40); RED CELL DISTRIBUTION WIDTH 13.9 % (11.5-14.5); WHITE BLOOD COUNT 3.6 10^3/ul (4.8-10.8)
[2017-04-09 06:54] LABS: CREATININE 0.86 mg/dl (0.44-1.00)
[2017-04-09 06:55] LABS: CALCIUM 9.1 mg/dl (8.4-10.2)
[2017-04-09 07:55] VITALS: BP 150/70; RESP 18
[2017-04-09] MEDS: INSULIN ASPART [NOVOLOG] 3 ML PEN SC SCH ×4 (08:23→20:51)
[2017-04-09] MEDS: metFORMIN 500 MG TAB PO SCH ×2 (08:28→17:34)
[2017-04-09] MEDS: LOSARTAN 25 MG TAB PO SCH (08:31)
[2017-04-09] MEDS: LEVETIRACETAM 750 MG TAB PO SCH ×2 (08:31→20:38)
--- NOTE | 2017-04-09 17:23 | PN ---
Date/Time of Note Date/Time of Note DATE: 04/09/17 TIME: 17:20 Assessment/Plan VTE Prophylaxis VTE Prophylaxis Intervention: SCD's Lines/Catheters IV Catheter Type (from Nrs): Saline Lock Central line still needed: Yes Urinary Cath still in place: No Assessment/Plan Chief Complaint/Hosp Course Assessment and plan: - Hypoglycemia on admission. - Recurrent fall with chest contusion and left leg contusion. Continue physical therapy - Diabetes mellitus with hemoglobin A1c is 6. Continue metformin and NovoLog per mild algorithm sliding scale scale. - Hypertension. Continue Cozaar and Coreg. - Dyslipidemia. Continue statin. - Seizure disorder. Continue Keppra. - Pancytopenia. Dr. Pedersen is asked to see patient in hematology consultation. - History of subdural hematoma status post craniotomy. - Mentally challenged. Further recommendations based on clinical course. Plan of care discussed with Dr. Diggs. Problems: Subjective 24 Hr Interval Summary Free Text/Dictation Patient is awake alert, tolerates diet well. Exam/Review of Systems Vital Signs Vitals Vital Signs Date Time Temp Pulse Resp B/P Pulse Ox O2 Delivery O2 Flow Rate FiO2 04/09/17 07:55 97.1 67 18 150/70 98 04/07/17 19:26 Room Air Intake and Output 04/08/17 04/08/17 04/09/17 15:00 23:00 07:00 Intake Total 1600 ml 1200 ml 1020 ml Output Total 600 ml 800 ml 1400 ml Balance 1000 ml 400 ml -380 ml Exam Constitutional: alert, well developed Psych: no complaints Head: atraumatic, normocephalic Eyes: nl conjunctiva ENMT: nl external ears & nose Neck: non-tender, supple Respiratory: clear to auscultation, normal air movement Cardiovascular: nl pulses, regular rate and rhythm Gastrointestinal: soft Genitourinary - Female: nl adnexae Musculoskeletal: nl extremities to inspection Extremities: normal pulses Neurological: COATER II-XII intact Results Result Diagram: 04/09/17 0540 04/09/17 0540 Results 24 hrs Laboratory Tests Test 04/08/17 21:15 04/09/17 02:26 04/09/17 05:40 04/09/17 08:17 Bedside Glucose 199 174 207 White Blood Count 3.6 L Red Blood Count 3.02 L Hemoglobin 9.7 L Hematocrit 28.4 L Mean Corpuscular Volume 94.0 Mean Corpuscular Hemoglobin 32.1 Mean Corpuscular Hemoglobin Concent 34.2 Red Cell Distribution Width 13.9 Platelet Count 68 L Mean Platelet Volume 11.9 H Neutrophils % 78.7 H Lymphocytes % 11.2 L Monocytes % 7.0 Eosinophils % 2.5 Basophils % 0.3 Nucleated Red Blood Cells % 0.0 Neutrophils # 2.8 Lymphocytes # 0.4 L Monocytes # 0.3 Eosinophils # 0.1 Basophils # 0.0 Nucleated Red Blood Cells # 0.0 Sodium Level 140 Potassium Level 4.0 Chloride Level 102 Carbon Dioxide Level 27 Anion Gap 15 Blood Urea Nitrogen 26 H Creatinine 0.86 Glucose Level 179 Calcium Level 9.1 Test 04/09/17 12:27 Bedside Glucose 251 H Medications Medications Current Medications Acetaminophen (Tylenol Tab) 650 mg Q4H PRN PO PAIN AND OR ELEVATED TEMP; Start 04/05/17 at 23:00 Diagnostic Test (Pha) (Accu-Chek) 1 ea 02 XX Last administered on 04/09/17 02: 31; Admin Dose 1 EA; Start 04/06/17 at 02:00 Tramadol HCl (Ultram) 50 mg Q6H PRN PO PAIN LEVEL 4-6; Start 04/05/17 at 23:00 Atorvastatin Calcium (Lipitor) 20 mg QHS PO Last administered on 04/08/17 21: 16; Admin Dose 20 MG; Start 04/06/17 at 21:00 Carvedilol (Coreg) 3.125 mg BID PO Last administered on 04/09/17 08:30; Admin Dose 3.125 MG; Start 04/06/17 at 09:00 Levetiracetam (Keppra) 750 mg BID PO Last administered on 04/09/17 08:31; Admin Dose 750 MG; Start 04/06/17 at 09:00 Losartan Potassium (Cozaar) 25 mg DAILY PO Last administered on 04/09/17 08:31 ; Admin Dose 25 MG; Start 04/06/17 at 09:00 Miscellaneous Information 1 ea NOTE XX ; Start 04/05/17 at 23:30 Glucose (Glutose) 15 gm Q15M PRN PO DECREASED GLUCOSE; Start 04/05/17 at 23:30 Glucose (Glutose) 22.5 gm Q15M PRN PO DECREASED GLUCOSE; Start 04/05/17 at 23: 30 Dextrose (D50w Syringe) 25 ml Q15M PRN IV DECREASED GLUCOSE; Start 04/05/17 at 23:30 Dextrose (D50w Syringe) 50 ml Q15M PRN IV DECREASED GLUCOSE; Start 04/05/17 at 23:30 Glucagon (Glucagen) 1 mg Q15M PRN IM DECREASED GLUCOSE; Start 04/05/17 at 23:30 Glucose (Glutose) 15 gm Q15M PRN BUCCAL DECREASED GLUCOSE; Start 04/05/17 at 23 :30 BERTO JULIO April 09, 2017 17:23
--- NOTE | 2017-04-09 17:50 | CONS ---
Date/Time of Note Date/Time of Note DATE: 04/09/17 TIME: 17:40 Assessment/Plan Assessment/Plan Chief Complaint/Hosp Course The patient is a 76-year-old female with history of hypertension, diabetes, mentally challenged history of schizophrenia and bipolar disorder, history of subdural hematoma status post craniotomy, with pancytopenia with WBC 3.6, Hgb 9.7, Plt 68, MCV 94, RDW 13.9. - FOBT negative; Hep B surface Ag neg, Hep C Ab neg; Fe 51, TIBC 265, %sat 19, ferritin 65.7; TIBC on lower end of normal may suggest component of anemia of chronic inflammation, ferritin < 100 cannot rule out iron deficiency - Vitamin B12 319, which is on the lower end of normal; Folate normal, TSH normal at 1.2 - Will repeat full Hepatitis panel, with HIV, repeat iron panel with ferritin, B12, along with methylmalonic acid, homocysteine, LDH, retic count, haptoglobin , SUSU, SPEP - May warrant outpatient vs. inpatient colonoscopy, especially given longstanding GI complaints (diarrhea) and no prior colonoscopy - Will order Abdominal US to evaluate for cirrhosis or splenomegaly - Plan for bone marrow biopsy tomorrow to eval for MDS, leukemia, bone marrow process etc. I spoke to patient who deferred to DPESTHER Orourke ([phone]); Tegan Orourke has authorized bone marrow biopsy. - Auth requested to follow up with me as an outpatient Problems: Consultation Date/Type/Reason Admit Date/Time April 05, 2017 at 18:50 Date of Consultation: April 09, 2017 Type of Consultation: Hematology Reason for Consultation Pancytopenia Hx of Present Illness The patient is a 76-year-old female with history of hypertension, diabetes, mentally challenged history of schizophrenia and bipolar disorder, history of subdural hematoma status post craniotomy. The patient's DPOA Tegan Orourke ([phone]) who lives close to her apartment brought her into [facility] ER for recurrent fall with chest/left leg contusion, hypoglycemia on admission. Hematology is being consulted for pancytopenia. Per chart review, the patient has a history of chronic anemia and thrombocytopenia of unknown etiology though patient and DPOA deny any known history; she has never seen a frog catcher. She denies any bleeding. Tegan has noted that she has had chronic diarrhea but has never had a colonoscopy. She was recent admitted at [facility] for heart failure. Psychological: no complaints Past Medical History Recurrent falls with chest/left leg contusion Diabetes Hypertension Hyperlipidemia Seizure disorder on Keppra History of SDH s/p craniotomy Mentally challeneged History of schizophrenia, bipolar disorder Heart Failure Arthritis Obsessive compulsive disorder Dementia, Parkinson's per DPOA Family History Significant Family History: no pertinent family hx Social History Alcohol Use: none Smoking Status: Never smoker Exam/Review of Systems Vital Signs Vitals Vital Signs Date Time Temp Pulse Resp B/P Pulse Ox O2 Delivery O2 Flow Rate FiO2 04/09/17 07:55 97.1 67 18 150/70 98 04/07/17 19:26 Room Air Intake and Output 04/08/17 04/08/17 04/09/17 15:00 23:00 07:00 Intake Total 1600 ml 1200 ml 1020 ml Output Total 600 ml 800 ml 1400 ml Balance 1000 ml 400 ml -380 ml Exam Constitutional: alert Psych: no complaints Head: normocephalic Eyes: nl conjunctiva Neck: supple Respiratory: clear to auscultation Cardiovascular: regular rate and rhythm Gastrointestinal: soft Musculoskeletal: nl extremities to inspection Results Result Diagram: 04/09/17 0540 04/09/17 0540 Results 24 hrs Laboratory Tests Test 04/08/17 21:15 04/09/17 02:26 04/09/17 05:40 04/09/17 08:17 Bedside Glucose 199 174 207 White Blood Count 3.6 L Red Blood Count 3.02 L Hemoglobin 9.7 L Hematocrit 28.4 L Mean Corpuscular Volume 94.0 Mean Corpuscular Hemoglobin 32.1 Mean Corpuscular Hemoglobin Concent 34.2 Red Cell Distribution Width 13.9 Platelet Count 68 L Mean Platelet Volume 11.9 H Neutrophils % 78.7 H Lymphocytes % 11.2 L Monocytes % 7.0 Eosinophils % 2.5 Basophils % 0.3 Nucleated Red Blood Cells % 0.0 Neutrophils # 2.8 Lymphocytes # 0.4 L Monocytes # 0.3 Eosinophils # 0.1 Basophils # 0.0 Nucleated Red Blood Cells # 0.0 Sodium Level 140 Potassium Level 4.0 Chloride Level 102 Carbon Dioxide Level 27 Anion Gap 15 Blood Urea Nitrogen 26 H Creatinine 0.86 Glucose Level 179 Calcium Level 9.1 Test 04/09/17 12:27 04/09/17 17:30 Bedside Glucose 251 H 166 Medications Medications Current Medications Acetaminophen (Tylenol Tab) 650 mg Q4H PRN PO PAIN AND OR ELEVATED TEMP; Start 04/05/17 at 23:00 Diagnostic Test (Pha) (Accu-Chek) 1 ea 02 XX Last administered on 04/09/17 02: 31; Admin Dose 1 EA; Start 04/06/17 at 02:00 Tramadol HCl (Ultram) 50 mg Q6H PRN PO PAIN LEVEL 4-6; Start 04/05/17 at 23:00 Atorvastatin Calcium (Lipitor) 20 mg QHS PO Last administered on 04/08/17 21: 16; Admin Dose 20 MG; Start 04/06/17 at 21:00 Carvedilol (Coreg) 3.125 mg BID PO Last administered on 04/09/17 08:30; Admin Dose 3.125 MG; Start 04/06/17 at 09:00 Levetiracetam (Keppra) 750 mg BID PO Last administered on 04/09/17 08:31; Admin Dose 750 MG; Start 04/06/17 at 09:00 Losartan Potassium (Cozaar) 25 mg DAILY PO Last administered on 04/09/17 08:31 ; Admin Dose 25 MG; Start 04/06/17 at 09:00 Miscellaneous Information 1 ea NOTE XX ; Start 04/05/17 at 23:30 Glucose (Glutose) 15 gm Q15M PRN PO DECREASED GLUCOSE; Start 04/05/17 at 23:30 Glucose (Glutose) 22.5 gm Q15M PRN PO DECREASED GLUCOSE; Start 04/05/17 at 23: 30 Dextrose (D50w Syringe) 25 ml Q15M PRN IV DECREASED GLUCOSE; Start 04/05/17 at 23:30 Dextrose (D50w Syringe) 50 ml Q15M PRN IV DECREASED GLUCOSE; Start 04/05/17 at 23:30 Glucagon (Glucagen) 1 mg Q15M PRN IM DECREASED GLUCOSE; Start 04/05/17 at 23:30 Glucose (Glutose) 15 gm Q15M PRN BUCCAL DECREASED GLUCOSE; Start 04/05/17 at 23 :30 KOLBY BARTHOLOMEW MD April 09, 2017 17:50
[2017-04-09 19:39] VITALS: BP 142/61; RESP 18
[2017-04-09] MEDS: ATORVASTATIN 20 MG TAB PO SCH (20:38)
[2017-04-09] MEDS ORDERED: SOD CHLORIDE 0.45% 1,000 ML IV SCH (23:00)
[2017-04-10] VITALS (9 sets, daily range): BP systolic 119–175; BP diastolic 54–71; PULSE 60–68; RESP 16–20
[2017-04-10] MEDS: ACCU-CHEK XX SCH (02:13)
[2017-04-10 06:18] LABS: ADD SCAN DIFF NO
[2017-04-10 06:19] LABS: HAAIG REFLEX REFLEX FILED
[2017-04-10 06:27] LABS: ABNORMAL IP MESSAGE 1; BASOPHILS % 1.2 % (0.0-2.0); EOSINOPHILS # 0.1 10^3/ul (0.0-0.5); EOSINOPHILS % 5.3 % (0.0-7.0); HEMATOCRIT 29.7 % (37.0-47.0); HEMOGLOBIN 10.1 g/dl (12.0-16.0); LYMPHOCYTES # 0.4 10^3/ul (0.8-2.9); LYMPHOCYTES % 14.4 % (15.0-51.0); MEAN CORPUSCULAR HEMOGLOBIN 31.8 pg (29.0-33.0); MEAN CORPUSCULAR VOLUME 93.4 fl (82.0-101.0); MEAN PLATELET VOLUME 11.9 fl (7.4-10.4); MONOCYTE # 0.2 10^3/ul (0.3-0.9); MONOCYTES % 9.9 % (0.0-11.0); NEUTROPHIL # 1.7 10^3/ul (1.6-7.5); NEUTROPHILS % 68.8 % (39.0-77.0); PLATELET COUNT 79 10^3/UL (140-415); RED BLOOD COUNT 3.18 10^6/ul (4.20-5.40); RED CELL DISTRIBUTION WIDTH 13.5 % (11.5-14.5); WHITE BLOOD COUNT 2.4 10^3/ul (4.8-10.8)
[2017-04-10 06:29] LABS: RETICULOCYTE COUNT % 3.3 % (0.5-1.5)
[2017-04-10 06:39] LABS: IRON 44 ug/dl (35-150); LACTATE DEHYDROGENASE 365 IU/L (313-618)
[2017-04-10 06:43] LABS: INR 1.02; PROTIME 13.4 Sec (12.2-14.2)
[2017-04-10 06:46] LABS: POTASSIUM 4.3 mmol/L (3.5-5.1)
[2017-04-10 06:49] LABS: CREATININE 0.84 mg/dl (0.44-1.00)
[2017-04-10 06:50] LABS: CALCIUM 9.1 mg/dl (8.4-10.2)
[2017-04-10 06:51] LABS: TOTAL IRON BINDING CAPACITY 293 ug/dl (241-421)
[2017-04-10 07:17] LABS: FERRITIN 60.7 ng/ml (11.1-264.0)
[2017-04-10 07:30] LABS: HEPATITIS B CORE ANTIBODY NEGATIVE (NEGATIVE)
[2017-04-10] MEDS: INSULIN ASPART [NOVOLOG] 3 ML PEN SC SCH ×4 (08:03→20:32)
[2017-04-10] MEDS: metFORMIN 500 MG TAB PO SCH ×2 (08:15→17:34)
--- NOTE | 2017-04-10 08:21 | RADRPT ---
PROCEDURE: Ultrasound of the abdomen and retroperitoneum. CLINICAL INDICATION: Cirrhosis. Splenomegaly. TECHNIQUE: Multiple real-time longitudinal and transverse images of the abdomen were acquired util izing a curved array transducer. Images were reviewed on a high-resolution PACS workstation. COMPARISON: CT abdomen pelvis 03/25/2014 FINDINGS: The liver is normal in size, shape, and echogenicity. No hepatic masses are seen. The portal vein is patent. The liver surface is smooth. There is no ultrasonographic evidence of hepatic cirrhosis. There is no evidence of intra or extrahepatic ductal dilatation. The common bile duct measures 4.8 mm in maximal dimension. Gallstones are identified within the gallbladder. There is no gallbladder wall thickening. The visualized portions of the pancreas are unremarkable with obscuration of the tail of the pancrea s. No free fluid is identified. The spleen is normal and measures 10.4 cm. The kidneys are without calcifications or hydronephrosis. The right kidney was not measured by the salmon troll fisher. The left kidney measures approximately 10.4 cm in length. The visualized portions of the aorta and inferior vena cava are unremarkable. IMPRESSION: 1. No ultrasonographic evidence of hepatic cirrhosis or splenomegaly. 2. Cholelithiasis. 3. Otherwise unremarkable ultrasound of the abdomen and retroperitoneum. RPTAT: [facility] .Pedro Nelson MD, MD Date Time Electronically viewed and signed by .Pedro Nelson MD, MD on 04/10/2017 08:20 .B/
[2017-04-10] MEDS: LOSARTAN 25 MG TAB PO SCH (09:00)
[2017-04-10] MEDS: LEVETIRACETAM 750 MG TAB PO SCH ×2 (09:00→20:25)
--- NOTE | 2017-04-10 13:56 | CONS ---
Date/Time of Note Date/Time of Note DATE: 04/10/17 TIME: 13:52 Assessment/Plan Assessment/Plan Chief Complaint/Hosp Course The patient is a 76-year-old female with history of hypertension, diabetes, mentally challenged history of schizophrenia and bipolar disorder, history of subdural hematoma status post craniotomy, with pancytopenia with WBC 3.6, Hgb 9.7, Plt 68, MCV 94, RDW 13.9. - FOBT negative however iron Fe 51, TIBC 265, %sat 19, ferritin 65.7; TIBC on lower end of normal may suggest component of anemia of chronic inflammation, ferritin < 100 cannot rule out iron deficiency. May warrant outpatient vs. inpatient colonoscopy, especially given longstanding GI complaints (diarrhea) and no prior colonoscopy - Hepatitis panel and HIV negative - LDH normal at 365, retic count 104K which is inappropriately low for hemoglobin - Vitamin B12 319, which is on the lower end of normal; Folate normal, TSH normal at 1.2. Pending methylmalonic acid, homocysteine, haptoglobin, SUSU, SPEP - Abdominal US showed no ultrasonographic evidence of hepatic cirrhosis or splenomegaly, cholelithiasis, otherwise unremarkable - Plan for bone marrow biopsy today to eval for MDS, leukemia, bone marrow process etc. I spoke to patient who deferred to AQUILES Orourke ([phone]); Tegan Orourke has authorized bone marrow biopsy. - Auth requested to follow up with me as an outpatient Problems: Consultation Date/Type/Reason Admit Date/Time April 05, 2017 at 18:50 Initial Consult Date 04/09/17 Type of Consultation: Hematology 24 HR Interval Summary Free Text/Dictation No complaints. Exam/Review of Systems Vital Signs Vitals Vital Signs Date Time Temp Pulse Resp B/P Pulse Ox O2 Delivery O2 Flow Rate FiO2 04/10/17 07:46 98.2 62 18 146/62 97 04/07/17 19:26 Room Air Intake and Output 04/09/17 04/09/17 04/10/17 15:00 23:00 07:00 Intake Total 1300 ml 575 ml Output Total 1200 ml Balance 1300 ml -625 ml Exam Constitutional: alert Psych: no complaints Head: normocephalic Eyes: nl conjunctiva Neck: supple Respiratory: clear to auscultation Cardiovascular: regular rate and rhythm Gastrointestinal: soft Musculoskeletal: nl extremities to inspection Results Result Diagram: 04/10/17 0545 04/10/17 0545 Results 24 hrs Laboratory Tests Test 04/09/17 17:30 04/09/17 20:37 04/10/17 02:04 04/10/17 05:45 Bedside Glucose 166 264 H 177 White Blood Count 2.4 #L Red Blood Count 3.18 L Hemoglobin 10.1 L Hematocrit 29.7 L Mean Corpuscular Volume 93.4 Mean Corpuscular Hemoglobin 31.8 Mean Corpuscular Hemoglobin Concent 34.0 Red Cell Distribution Width 13.5 Platelet Count 79 L Mean Platelet Volume 11.9 H Neutrophils % 68.8 Lymphocytes % 14.4 L Monocytes % 9.9 Eosinophils % 5.3 Basophils % 1.2 Nucleated Red Blood Cells % 0.0 Neutrophils # 1.7 Lymphocytes # 0.4 L Monocytes # 0.2 L Eosinophils # 0.1 Basophils # 0.0 Nucleated Red Blood Cells # 0.0 Absolute Reticulocyte Count 0.104 Percent Reticulocyte Count 3.3 H Prothrombin Time 13.4 Prothrombin Time Ratio 1.0 INR International Normalized Ratio 1.02 Activated Partial Thromboplast Time 32.0 Sodium Level 138 Potassium Level 4.3 Chloride Level 101 Carbon Dioxide Level 25 Anion Gap 16 Blood Urea Nitrogen 26 H Creatinine 0.84 Glucose Level 168 Calcium Level 9.1 Iron Level 44 Total Iron Binding Capacity 293 Percent Iron Saturation 15 L Ferritin 60.7 Lactate Dehydrogenase 365 Vitamin B12 Level 331 Hepatitis B Surface Antigen NEGATIVE Hepatitis B Core Total Antibody NEGATIVE Hepatitis C Antibody NEGATIVE HIV (1&2) Antibody NEGATIVE Test 04/10/17 06:19 04/10/17 07:48 04/10/17 11:51 Hepatitis A IgM Antibody Bedside Glucose 183 188 Medications Medications Current Medications Acetaminophen (Tylenol Tab) 650 mg Q4H PRN PO PAIN AND OR ELEVATED TEMP; Start 04/05/17 at 23:00 Diagnostic Test (Pha) (Accu-Chek) 1 ea 02 XX Last administered on 04/10/17 02: 13; Admin Dose 1 EA; Start 04/06/17 at 02:00 Tramadol HCl (Ultram) 50 mg Q6H PRN PO PAIN LEVEL 4-6; Start 04/05/17 at 23:00 Atorvastatin Calcium (Lipitor) 20 mg QHS PO Last administered on 04/09/17 20: 38; Admin Dose 20 MG; Start 04/06/17 at 21:00 Carvedilol (Coreg) 3.125 mg BID PO Last administered on 04/09/17 20:39; Admin Dose 3.125 MG; Start 04/06/17 at 09:00 Levetiracetam (Keppra) 750 mg BID PO Last administered on 04/09/17 20:38; Admin Dose 750 MG; Start 04/06/17 at 09:00 Losartan Potassium (Cozaar) 25 mg DAILY PO Last administered on 04/09/17 08:31 ; Admin Dose 25 MG; Start 04/06/17 at 09:00 Miscellaneous Information 1 ea NOTE XX ; Start 04/05/17 at 23:30 Glucose (Glutose) 15 gm Q15M PRN PO DECREASED GLUCOSE; Start 04/05/17 at 23:30 Glucose (Glutose) 22.5 gm Q15M PRN PO DECREASED GLUCOSE; Start 04/05/17 at 23: 30 Dextrose (D50w Syringe) 25 ml Q15M PRN IV DECREASED GLUCOSE; Start 04/05/17 at 23:30 Dextrose (D50w Syringe) 50 ml Q15M PRN IV DECREASED GLUCOSE; Start 04/05/17 at 23:30 Glucagon (Glucagen) 1 mg Q15M PRN IM DECREASED GLUCOSE; Start 04/05/17 at 23:30 Glucose 15 gm 15 gm Q15M PRN BUCCAL DECREASED GLUCOSE; Start 04/05/17 at 23:30 Sodium Chloride (1/2 NS) 1,000 ml @ 75 mls/hr [id number] IV Last administered on 04/10/17 00:11; Admin Dose 75 MLS/HR; Start 04/09/17 at 23:00 KOLBY BARTHOLOMEW MD April 10, 2017 13:56
[2017-04-10] MEDS ORDERED: LIDOCAINE 1% (MDV) 20 ML INJ ONE (14:58)
[2017-04-10] MEDS ORDERED: MIDAZOLAM 1 MG/ML 2 ML INJ ONE (14:59)
[2017-04-10] MEDS ORDERED: FENTAnyl 50 MCG/ML VIAL ONE (14:59)
[2017-04-10] MEDS ORDERED: SOD CHLORIDE 0.9% 500 ML ONE (14:59)
--- NOTE | 2017-04-10 17:37 | RADRPT ---
PROCEDURE: CT guided bone marrow aspiration and left iliac bone biopsy. CLINICAL INDICATION: History of pancytopenia. TECHNIQUE: Informed consent was obtained. The procedure, risks, benefits, complications and alternatives were e xplained to the patient. Risks including bleeding and infection were explained. The patient understo od and was willing to proceed. A procedural pause was performed. The patient's name, date of , and procedure to be performed were verified. One or more of the following dose reduction techni ques were used: Automated exposure control, adjustment of the mA and/or kV according to patient size , use of iterative reconstruction technique. Using local anesthetic, sterile technique and CT guidance, an 11-gauge On Control bone biopsy needle was advanced into the left iliac bone via a posterior approach. Bone marrow aspiration was perform ed yielding approximately 10 ml. The bone biopsy needle was then advanced an additional 4 cm using the power drill device and tissue was obtained. Adequate tissue was obtained according to the patho logist present during the procedure. The needle was removed. A postprocedural scan was performed. A dressing was applied. The patient tolerated procedure well. COMPARISON: None. FINDINGS: Initial images demonstrate the tip of the needle at the posterior margin of the left iliac bone. Jeffery bsequent images demonstrate the needle within the bone. Post biopsy images demonstrate no immediate complication. IMPRESSION: 1. Successful CT guided bone marrow aspiration and biopsy. RPTAT: QQ .Jaciel Brody MD, Date Time Electronically viewed and signed by .Jaciel Brody MD, MD on 04/10/2017 17:36 .R/
--- NOTE | 2017-04-10 17:41 | PN ---
Date/Time of Note Date/Time of Note DATE: 04/10/17 TIME: 17:39 Assessment/Plan VTE Prophylaxis VTE Prophylaxis Intervention: SCD's Lines/Catheters IV [facility] Urinary Cath still in place: No Assessment/Plan Chief Complaint/Hosp Course Assessment and plan: - Hypoglycemia on admission. - Recurrent fall with chest contusion and left leg contusion. Continue physical therapy - Diabetes mellitus with hemoglobin A1c is 6. Continue metformin and NovoLog per mild algorithm sliding scale scale. - Hypertension. Continue Cozaar and Coreg. - Dyslipidemia. Continue statin. - Seizure disorder. Continue Keppra. - Pancytopenia. Dr. Kahn is following in hematology consultation. Pending bone marrow biopsy. - History of subdural hematoma status post craniotomy. - Mentally challenged. Further recommendations based on clinical course. Plan of care discussed with Dr. Diggs. Problems: Subjective 24 Hr Interval Summary Free Text/Dictation Patient is currently in OR undergoing bone marrow biopsy, no acute events reported prior to procedure. Exam/Review of Systems Vital Signs Vitals Vital Signs Date Time Temp Pulse Resp B/P Pulse Ox O2 Delivery O2 Flow Rate FiO2 04/10/17 16:00 Nasal Cannula 3 04/10/17 15:45 67 16 119/54 94 04/10/17 15:00 98.2 Intake and Output 04/09/17 04/09/17 04/10/17 15:00 23:00 07:00 Intake Total 1300 ml 575 ml Output Total 1200 ml Balance 1300 ml -625 ml Results Result Diagram: 04/10/17 0545 04/10/17 0545 Results 24 hrs Laboratory Tests Test 04/09/17 20:37 04/10/17 02:04 04/10/17 05:45 04/10/17 06:19 Bedside Glucose 264 H 177 White Blood Count 2.4 #L Red Blood Count 3.18 L Hemoglobin 10.1 L Hematocrit 29.7 L Mean Corpuscular Volume 93.4 Mean Corpuscular Hemoglobin 31.8 Mean Corpuscular Hemoglobin Concent 34.0 Red Cell Distribution Width 13.5 Platelet Count 79 L Mean Platelet Volume 11.9 H Neutrophils % 68.8 Lymphocytes % 14.4 L Monocytes % 9.9 Eosinophils % 5.3 Basophils % 1.2 Nucleated Red Blood Cells % 0.0 Neutrophils # 1.7 Lymphocytes # 0.4 L Monocytes # 0.2 L Eosinophils # 0.1 Basophils # 0.0 Nucleated Red Blood Cells # 0.0 Absolute Reticulocyte Count 0.104 Percent Reticulocyte Count 3.3 H Prothrombin Time 13.4 Prothrombin Time Ratio 1.0 INR International Normalized Ratio 1.02 Activated Partial Thromboplast Time 32.0 Sodium Level 138 Potassium Level 4.3 Chloride Level 101 Carbon Dioxide Level 25 Anion Gap 16 Blood Urea Nitrogen 26 H Creatinine 0.84 Glucose Level 168 Calcium Level 9.1 Iron Level 44 Total Iron Binding Capacity 293 Percent Iron Saturation 15 L Ferritin 60.7 Lactate Dehydrogenase 365 Vitamin B12 Level 331 Hepatitis B Surface Antigen NEGATIVE Hepatitis B Core Total Antibody NEGATIVE Hepatitis C Antibody NEGATIVE HIV (1&2) Antibody NEGATIVE Hepatitis A IgM Antibody Test 04/10/17 07:48 04/10/17 11:51 04/10/17 17:22 Bedside Glucose 183 188 165 Medications Medications Current Medications Acetaminophen (Tylenol Tab) 650 mg Q4H PRN PO PAIN AND OR ELEVATED TEMP; Start 04/05/17 at 23:00 Diagnostic Test (Pha) (Accu-Chek) 1 ea 02 XX Last administered on 04/10/17 02: 13; Admin Dose 1 EA; Start 04/06/17 at 02:00 Tramadol HCl (Ultram) 50 mg Q6H PRN PO PAIN LEVEL 4-6; Start 04/05/17 at 23:00 Atorvastatin Calcium (Lipitor) 20 mg QHS PO Last administered on 04/09/17 20: 38; Admin Dose 20 MG; Start 04/06/17 at 21:00 Carvedilol (Coreg) 3.125 mg BID PO Last administered on 04/09/17 20:39; Admin Dose 3.125 MG; Start 04/06/17 at 09:00 Levetiracetam (Keppra) 750 mg BID PO Last administered on 04/09/17 20:38; Admin Dose 750 MG; Start 04/06/17 at 09:00 Losartan Potassium (Cozaar) 25 mg DAILY PO Last administered on 04/09/17 08:31 ; Admin Dose 25 MG; Start 04/06/17 at 09:00 Miscellaneous Information 1 ea NOTE XX ; Start 04/05/17 at 23:30 Glucose (Glutose) 15 gm Q15M PRN PO DECREASED GLUCOSE; Start 04/05/17 at 23:30 Glucose (Glutose) 22.5 gm Q15M PRN PO DECREASED GLUCOSE; Start 04/05/17 at 23: 30 Dextrose (D50w Syringe) 25 ml Q15M PRN IV DECREASED GLUCOSE; Start 04/05/17 at 23:30 Dextrose (D50w Syringe) 50 ml Q15M PRN IV DECREASED GLUCOSE; Start 04/05/17 at 23:30 Glucagon (Glucagen) 1 mg Q15M PRN IM DECREASED GLUCOSE; Start 04/05/17 at 23:30 Glucose 15 gm 15 gm Q15M PRN BUCCAL DECREASED GLUCOSE; Start 04/05/17 at 23:30 Sodium Chloride (1/2 NS) 1,000 ml @ 75 mls/hr [id number] IV Last administered on 04/10/17 00:11; Admin Dose 75 MLS/HR; Start 04/09/17 at 23:00 BERTO JULIO April 10, 2017 17:41
[2017-04-10] MEDS: ATORVASTATIN 20 MG TAB PO SCH (20:25)
[2017-04-11] MEDS: ACCU-CHEK XX SCH (03:06)
[2017-04-11 05:37] LABS: ADD SCAN DIFF NO
[2017-04-11 05:40] LABS: ABNORMAL IP MESSAGE 1; BASOPHILS % 0.6 % (0.0-2.0); EOSINOPHILS # 0.1 10^3/ul (0.0-0.5); EOSINOPHILS % 2.8 % (0.0-7.0); HEMOGLOBIN 10.3 g/dl (12.0-16.0); LYMPHOCYTES # 0.3 10^3/ul (0.8-2.9); LYMPHOCYTES % 7.7 % (15.0-51.0); MEAN CORPUSCULAR HEMOGLOBIN 32.1 pg (29.0-33.0); MEAN CORPUSCULAR HGB CONC 34.3 g/dl (32.0-37.0); MEAN CORPUSCULAR VOLUME 93.5 fl (82.0-101.0); MEAN PLATELET VOLUME 11.1 fl (7.4-10.4); MONOCYTE # 0.3 10^3/ul (0.3-0.9); MONOCYTES % 8.3 % (0.0-11.0); NEUTROPHIL # 2.8 10^3/ul (1.6-7.5); RED BLOOD COUNT 3.21 10^6/ul (4.20-5.40); RED CELL DISTRIBUTION WIDTH 13.6 % (11.5-14.5); WHITE BLOOD COUNT 3.5 10^3/ul (4.8-10.8)
[2017-04-11 05:44] LABS: PLATELET COUNT 85 10^3/UL (140-415)
[2017-04-11 05:44] LABS: PROTEIN, TOTAL 5.5 g/dL (6.1-8.1)
[2017-04-11 06:03] LABS: POTASSIUM 4.5 mmol/L (3.5-5.1)
[2017-04-11 06:06] LABS: CREATININE 0.87 mg/dl (0.44-1.00)
[2017-04-11 06:07] LABS: CALCIUM 9.2 mg/dl (8.4-10.2)
[2017-04-11] MEDS: INSULIN ASPART [NOVOLOG] 3 ML PEN SC SCH (08:04)
--- NOTE | 2017-04-11 08:09 | PDOCDIS ---
Discharge Instructions CONDITION Patient Condition: Fair HOME CARE INSTRUCTIONS: Special Diet: mechanical soft diabetic diet FOLLOW UP/APPOINTMENTS Appointments on 04/15/17 at 2;[address] Kahn next week for BM biopsy result & follow up PATRICIA COVINGTON MD April 11, 2017 08:09
[2017-04-11 08:31] VITALS: BP 124/59; RESP 18
[2017-04-11] MEDS: LEVETIRACETAM 750 MG TAB PO SCH (08:53)
[2017-04-11] MEDS: metFORMIN 500 MG TAB PO SCH (08:53)
[2017-04-11] MEDS: LOSARTAN 25 MG TAB PO SCH (08:56)
[2017-04-11] MEDS ORDERED: LINAGLIPTIN 5 MG TABLET PO SCH (09:00)
--- NOTE | 2017-04-11 11:59 | DS ---
DATE OF ADMISSION: 04/05/2017 DATE OF DISCHARGE: 04/11/2017 DISCHARGE MEDICATIONS: 1. Coreg 3.125 b.i.d. 2. Lipitor 20 mg once a day. 3. Keppra 750 b.i.d. 4. Tradjenta 5 mg once a day. 5. Cozaar 25 mg once a day. 6. Metformin 1000 mg twice a day. We will also arrange home health for followup on her diabetes and home safety evaluation. FINAL DIAGNOSES: 1. Status post hypoglycemia. 2. History of diabetes. 3. Multiple falls. 4. Mentally challenged 5. Hypertension. 6. Seizure disorder. 7. Pancytopenia, status post bone marrow biopsy, results pending. 8. Dyslipidemia. 9. History of subdural hematoma, status post surgery. REASON FOR ADMISSION: The patient is a 76-year-old female with history of hypertension, diabetes, w ho also has a history of subdural hematoma, status post craniotomy, history of schizophrenia and bip olar disorder, mentally challenged. The patient lives by herself and has a caregiver who checks on her frequently, her name is Ms. Javed. She also has a DPOA. The patient was brought in the hospital after she had a recurrent fall. She recently was seen at another hospital. The patient was noted to have left leg focal swelling and ecchymosis of the left chest wall. The patient had negative x-r ays. The patient was also noted to have leukopenia and thrombocytopenia. The patient's white count was 3.4, hemoglobin 9.6, platelets 78. The patient was seen by Dr. Kahn and extensive workup was don e. Serology for hepatitis and HIV were negative. Stool occult was negative. Urine culture and blo od cultures were negative. The patient underwent bone marrow biopsy yesterday. The patient this mo rning had to go home and could not wait for lab results and for the examination for leukopenia and t hrombocytopenia. The patient's sister had just and she wanted to attend her today. Th e patient did not have any chest pain, shortness of breath, fever or chills. PHYSICAL EXAMINATION: VITAL SIGNS: This morning, temperature 98, pulse 76, respirations 18, blood pressure 124/59, O2 sat uration 99% on room air. HEENT: Conjunctivae and lids normal. Oropharynx clear. NECK: Supple, no mass or thyromegaly. LUNGS: Fairly clear. No use of accessory muscles. CARDIOVASCULAR: S1, S2 normal. No murmur, gallop, or rub. ABDOMEN: Soft, nondistended, nontender. No palpable mass. EXTREMITIES: No leg edema. NEUROLOGIC: The patient is awake, alert, follows simple commands, oriented x1 only. LABORATORY DATA: screen was pending. Chemistry done this morning: Sodium 139, potassium 4.5 , BUN 23, creatinine 0.8, glucose 171 and therefore decision was made to add Tradjenta to her Glucop emil regimen. The patient is unreliable to give insulin at home and in fact, she was admitted with hypoglycemia with a blood sugar of 50 when she arrived in the ER on the day of admission. The patie nt did not have any further episode of hypoglycemia. The patient also had echocardiogram done due to elevated BNP; however, EF was 60%. Lasix will there fore be discontinued. The patient had negative troponin I during her hospital stay. The patient al so underwent abdominal ultrasound which revealed cholelithiasis. No evidence of cirrhosis or spleno megaly. Rib series was negative for fracture. Brain CT was negative for any acute event. CONDITION ON DISCHARGE: Stable. DIET: 1800 calorie mechanical soft diet. FOLLOWUP: The patient is to follow up with me on coming Saturday and follow up with Dr. Kahn for evalua tion of her leukopenia and anemia. Plan of care discussed with the patient's DPOA Ms. Javed. Dictated By: PATRICIA MAYFIELD/MARYSOL Conf#: [id number] DID#: [id number]
[2017-04-11 12:25] LABS: ANA SCREEN NEGATIVE (NEGATIVE)
[2017-04-11 13:07] LABS: HOMOCYSTEINE - CARDIOVASCULAR 15.2 umol/L (<10.4)
[2017-04-11 22:59] LABS: ALBUMIN 3.5 g/dL (3.8-4.8)
== END 2017-04-11 09:20 | disposition home or self-care (01) | DRG 629 ==
LOC: E/R 14:54 → MS2 18:50
PROVIDERS: ADMIT Internal Medicine; ATTEND Internal Medicine
PROC: 07DR3ZX Extraction of Iliac Bone Marrow, Percutaneous Approach, Diagnostic (ICD-10-PCS; principal; 2017-04-05)
PROC: 0QB33ZX Excision of Left Pelvic Bone, Percutaneous Approach, Diagnostic (ICD-10-PCS; 2017-04-05)
DX: E11.649 Type 2 diabetes mellitus with hypoglycemia without coma (principal); D61.818 Other pancytopenia; G93.89 Other specified disorders of brain; S30.1XXA Contusion of abdominal wall, initial encounter; S20.211A Contusion of right front wall of thorax, initial encounter; S80.12XA Contusion of left lower leg, initial encounter; S80.11XA Contusion of right lower leg, initial encounter; W19.XXXA Unspecified fall, initial encounter; Z91.81 History of falling; F20.9 Schizophrenia, unspecified; F31.9 Bipolar disorder, unspecified; Z91.14 Patient's other noncompliance with medication regimen; G40.909 Epilepsy, unspecified, not intractable, without status epilepticus; Z79.84 Long term (current) use of oral hypoglycemic drugs; F42.9 Obsessive-compulsive disorder, unspecified
CPT/HCPCS: 36415; 70450; 71010; 71100; 72170; 73590; 76700; 77012; 80048; 80053; 80061; 81001; 81003; 82270; 82550; 82553; 82607; 82728; 82746; 82962; 83010; 83036; 83090; 83540; 83605; 83615; 83880; 83921; 84155; 84165; 84443; 84484; 85025; 85045; 85610; 85730; 86038; 86703; 86704; 86709; 86803; 87040; 87086; 87340; 88305; 88313; 93005; 93306; 96374; J1815; J2250; J3010; J7040